=== PATIENT | female | born 1955 | race Caucasian/White ===

== ENCOUNTER 2024-10-18 12:12 | Emergency (ER) | payer MEDICARE, MEDICAID, SELFPAY ==
--- NOTE | ~2024-10-18 | XR_ITS ---
EXAMINATION: XR knee RT min 4V DATE: 10/18/2024 12:33 INDICATION: Proximal right tibial and medial knee pain post fall TECHNIQUE: Anteroposterior, 2 oblique and crosstable lateral views of the right knee were obtained COMPARISON: None. FINDINGS: Alignment is normal. No fracture. Tricompartmental osteoarthritis with small marginal osteophytes in all 3 components. Joint spaces are relatively preserved in the medial lateral compartments although t his could be underestimated on nonweightbearing imaging. There appears to be mild to potentially mode rate joint space narrowing at the patellofemoral compartment. There are couple loose osteochondral riaz dies along the cephalad margin of the patella. No surrounding joint effusion or layering lipohemarthr osis. Soft tissues are unremarkable. IMPRESSION: 1. No right knee joint effusion or acute osseous abnormality. 2. Likely mild to moderate patellofemoral compartment predominant tricompartmental osteoarthritis. Reviewed, dictated and finalized at location A. UNT ASSISTANT IMPRESSION: 1. No right knee joint effusion or acute osseous abnormality. 2. Likely mild to moderate patellofemoral compartment predominant tricompartmen casey osteoarthritis.
[2024-10-18 12:18] VITALS: BP 144/84; PULSE 111; RESP 18; TEMP 36.3; O2SAT 99
--- NOTE | 2024-10-18 12:27 | ED.LOWEXIN ---
HPI - Extremity Injury (Lower) General Chief Complaint: Extremity Injury, Lower Stated Complaint: Fall Injury/Right Knee Injury History of Present Illness HPI Narrative: Patient presents with right knee pain from an injury. No deformity noted patient states it hurts to ambulate on her knee Related Data Home Medications Medication Instructions Recorded Confirmed ibuprofen 800 mg tablet mg 10/18/24 Allergies Allergy/AdvReac Type Severity Reaction Status Date / Time No Known Allergies Allergy Verified 10/18/24 12:36 Review of Systems Review of Systems: CONSTITUTIONAL: Denies fever, chills, or sweats. EYES: Denies visual changes, redness, or discharge. ENT: Denies rhinorrhea, congestion, sore throat, or otalgia. CARDIOVASCULAR: Denies chest pain, palpitations, or edema. RESPIRATORY: Denies cough or dyspnea. GASTROINTESTINAL: Denies abdominal pain, nausea, vomiting, or diarrhea. GENITOURINARY: Denies dysuria or hematuria. SKIN: Denies rash or itching. MUSCULOSKELETAL: Denies back pain, joint pain, or myalgia. NEUROLOGIC: Denies headache, numbness, or weakness. PSYCHIATRIC: Denies anxiety or depression. PMFSH Comments At time of signature, agree with nursing past medical, surgical, social and family history. There is no relevant family history pertinent to the presenting complaint Exam Narrative: GENERAL: Well-appearing, well-nourished, and in no acute distress. HEAD: Normocephalic, atraumatic. EYES: PERRLA and EOMI. ENT: Nares clear, no rhinorrhea or epistaxis. Mucous membranes moist. NECK: Supple. CHEST: Clear to auscultation. No respiratory distress. HEART: Regular rate and rhythm. No murmur heard. Normal peripheral pulses. ABDOMEN: Soft, nontender, nondistended, normal active bowel sounds. EXTREMITIES: Normal range of motion. No edema. SKIN INTACT. NO DEFORMITY. NORMAL ROM, HAS FULL EXTENSION AND FLEXION. COMPARTMENTS SOFT. NEGATIVE ANTERIOR, POSTERIOR DRAWER SIGNS ON TEST. NO CREPITUS. DP PULSE, NORMAL CAPILLARY REFILL MCMURRAYS, PAIN TO RIGHT MEDIAL AND DISTAL KNEE WITH KNEE FLEXION, INTERNAL AND EXTERNAL FOOT ROTATION.NO ERYTHEMA OR INCREASED WARMTH TO CALF. . SKIN: Warm, dry, no rash. NEURO: No focal deficits. Alert and oriented x3. [place] Coma Scale Eye Opening: Spontaneous 4 Yvonne Coma Scale Motor: Obeys Commands 6 [place] Coma Scale Verbal: Oriented 5 [place] Coma Scale Total 15 Course Course Level of Care: Express Care Visit Vital Signs Vital signs: Vital Signs Temperature 36.3 C L 10/18/24 12:18 Pulse Rate 111 H 10/18/24 12:18 Respiratory Rate 18 10/18/24 12:18 Blood Pressure 144/84 H 10/18/24 12:18 Pulse Oximetry 99 10/18/24 12:18 Oxygen Delivery Room Air 10/18/24 12:18 Temperature 36.3 C L 10/18/24 12:18 Pulse Rate 111 H 10/18/24 12:18 Respiratory Rate 18 10/18/24 12:18 Blood Pressure 144/84 H 10/18/24 12:18 Pulse Oximetry 99 10/18/24 12:18 Oxygen Delivery Room Air 10/18/24 12:18 Please MIRIAM schedule a followup visit with your personal physician for further evaluation and treatment. Including recheck and discussion of your blood pressure. If your symptoms persist, change or worsen significantly before you can contact your personal physician then please, without delay, go to the emergency department for further evaluation Discharge Plan Discharge Clinical Impression: Muscle strain of right knee, Osteoarthritis Patient Disposition: Home, Self-Care Condition: Stable Instructions: Knee Sprain (DC) Additional Instructions: Ice to the area 20-30 minutes 4-6 times a day Elevate above heart Elastic wrap or orthopedic splint as directed for comfort for the next 5-7 days Tylenol for lesser pain Ibuprofen regularly for the next 2-3 days for the inflammation Follow-up with PCP if further problems or concerns -If you have any worsening of symptoms or any other concerns please go to the ED immediately. Prescriptions: No Action ibuprofen 800 mg tablet Follow-up/Referrals: PHYSICIAN,POWER LINE INSTALLER AND REPAIRER [Primary Care Provider] - Haroon Hsu MD [Physician] - Nelson Campoverde MD [Physician] -
== END 2024-10-18 13:02 | disposition home or self-care (01) ==
PROVIDERS: Emergency Provider Nurse Practitioner Family
DX: S86.911A Strain of unspecified muscle(s) and tendon(s) at lower leg level, right leg, initial encounter (principal); W19.XXXA Unspecified fall, initial encounter; M17.11 Unilateral primary osteoarthritis, right knee
CPT/HCPCS: 73564; 99203; G0463